=== PATIENT | female | born 1990 | race Two or more races ===

== ENCOUNTER 2021-03-25 02:11 | Inpatient (IN) | payer MEDICAID, OTHER ==
[2021-03-25] MEDS ORDERED: Methylergonovine 0.2 MG/ML VIAL IM PRN ×2 (02:53→03:39)
[2021-03-25] MEDS ORDERED: Carboprost 250 MCG/ML AMP IM PRN (02:53)
[2021-03-25] MEDS ORDERED: Promethazine HCl 25 MG/ML VIAL IM PRN (02:53)
[2021-03-25] MEDS ORDERED: hydrALAZINE 20 MG/ML VIAL SLOW IVP PRN ×2 (02:53→03:39)
[2021-03-25] MEDS ORDERED: Lidocaine 1% (PF) 30 ML VIAL SC PRN (02:53)
[2021-03-25] MEDS ORDERED: Acetaminophen 500 MG TAB PO PRN (02:53)
[2021-03-25] MEDS ORDERED: Ondansetron PF 4 MG/2 ML Vial IVP PRN ×2 (02:53→03:39)
[2021-03-25] MEDS ORDERED: Ibuprofen 800 MG TAB PO PRN (02:53)
[2021-03-25] MEDS ORDERED: Misoprostol 200 MCG TAB PR PRN (02:53)
[2021-03-25] MEDS ORDERED: NS w/ Oxytocin 30 units 500 ML IV SCH ×2 (03:00→04:00)
[2021-03-25] MEDS ORDERED: NS w/ Oxytocin 30 units 500 ML ONE (03:00)
[2021-03-25] MEDS ORDERED: Lactated Ringer's 1,000 ML IV SCH (03:00)
[2021-03-25 03:23] VITALS: BMI 35.2
[2021-03-25 03:26] LABS: Hemoglobin 11.6 g/dL (12.0-15.5); Mean Corpuscular Hemoglobin 28.6 pg (27.0-33.0); Mean Corpuscular Volume 89.2 fl (81.6-98.3); Mean Platelet Volume 10.9 fl (7.4-10.4); Platelet Count 232 10x3/uL (150-450); Red Blood Cell (RBC) Count 4.06 10x6/uL (3.90-5.03); White Blood Cell (WBC) Count 9.9 10x3/uL (3.5-10.5)
[2021-03-25] MEDS ORDERED: Lanolin Ointment 7 GM TUBE TOP PRN (03:39)
[2021-03-25] MEDS ORDERED: Preparation H Ointment 28 GM TUBE PR PRN (03:39)
[2021-03-25] MEDS ORDERED: Bisacodyl 10 MG SUPP PR PRN (03:39)
[2021-03-25] MEDS ORDERED: diphenhydrAMINE 25 MG CAP PO PRN (03:39)
[2021-03-25] MEDS ORDERED: Boostrix 0.5 ML (Tdap) VIAL IM ONE (03:39)
[2021-03-25] MEDS ORDERED: Misoprostol 200 MCG TAB VAG PRN (03:39)
[2021-03-25] MEDS ORDERED: Benzocaine-Menthol 82.5 ML CAN TOP PRN (03:39)
[2021-03-25] MEDS ORDERED: Milk Of Magnesia 30 ML UDCUP PO PRN (03:39)
[2021-03-25] MEDS ORDERED: Ibuprofen 800 MG TAB ONE (03:52)
[2021-03-25] MEDS: Ibuprofen 800 MG TAB PO SCH ×3 (03:53→21:10)
[2021-03-25 04:00] LABS: Syphilis Antibody Nonreactive (Nonreactive)
[2021-03-25] MEDS ORDERED: HYDROcodone/Acetaminophen 5/325 mg Tablet PO SCH (04:00)
[2021-03-25 04:14] LABS: HBSAg Index 0.18 S/CO (0-0.99); Hep B Surf Ag NonReactive S/CO (NonReactive)
[2021-03-25 04:29] LABS: SARS-CoV-2 NAA Rapid Test DETECTED (NotDetected)
[2021-03-25 05:25] LABS: Hemoglobin 10.3 g/dL (12.0-15.5); Mean Corpuscular HGB CONC 32.8 g/dL (32.0-36.0); Mean Corpuscular Hemoglobin 29.1 pg (27.0-33.0); Mean Corpuscular Volume 88.7 fl (81.6-98.3); Platelet Count 213 10x3/uL (150-450); RBC Distribution Width 13.9 % (11.5-14.5); Red Blood Cell (RBC) Count 3.54 10x6/uL (3.90-5.03); White Blood Cell (WBC) Count 13.3 10x3/uL (3.5-10.5)
[2021-03-25] MEDS ORDERED: Oxytocin 10 UNITS/ML VIAL ONE (05:35)
[2021-03-25] MEDS ORDERED: Witch Hazel-Glycerin 1 EACH JAR TOP PRN (08:24)
[2021-03-25] MEDS ORDERED: Witch Hazel-Glycerin 1 EACH JAR ONE (08:51)
[2021-03-25] MEDS: Prenatal Vitamin 1 TAB PO SCH (08:55)
[2021-03-25] MEDS: Docusate 100 MG CAP PO SCH ×2 (08:55→21:10)
[2021-03-25] MEDS: Ferrous Sulfate 325 MG TAB PO SCH (14:59)
[2021-03-25 17:57] LABS: SARS-CoV-2 NAA Rapid Test DETECTED (NotDetected)
[2021-03-26] MEDS: Ibuprofen 800 MG TAB PO SCH ×3 (05:51→21:51)
[2021-03-26] MEDS: Ferrous Sulfate 325 MG TAB PO SCH ×2 (08:13→15:36)
[2021-03-26] MEDS: Docusate 100 MG CAP PO SCH ×2 (08:19→21:52)
[2021-03-26] MEDS: Prenatal Vitamin 1 TAB PO SCH (08:19)
[2021-03-27] MEDS: Ibuprofen 800 MG TAB PO SCH (06:05)
[2021-03-27] MEDS: Ferrous Sulfate 325 MG TAB PO SCH (07:31)
[2021-03-27] MEDS: Docusate 100 MG CAP PO SCH (08:26)
[2021-03-27] MEDS: Prenatal Vitamin 1 TAB PO SCH (08:26)
[2021-03-27 08:48] VITALS: BP 108/53; TEMP 98.2
== END 2021-03-27 10:55 | disposition home or self-care (01) | DRG 805 ==
LOC: CSHLD/OP 02:11 → CSHLD 02:45 → CSHPP 13:25
PROVIDERS: ADMIT Family Medicine; ATTEND Family Medicine
PROC: 10E0XZZ Delivery of Products of Conception, External Approach (ICD-10-PCS; principal; 2021-03-25)
PROC: 10907ZC Drainage of Amniotic Fluid, Therapeutic from Products of Conception, Via Natural or Artificial Opening (ICD-10-PCS; 2021-03-25)
PROC: 8E0ZXY6 Isolation (ICD-10-PCS; 2021-03-25)
DX: O99.824 Streptococcus B carrier state complicating childbirth (principal); U07.1 COVID-19; Z37.0 Single live birth; O98.52 Other viral diseases complicating childbirth; Z3A.39 39 weeks gestation of pregnancy; O72.1 Other immediate postpartum hemorrhage
CPT/HCPCS: 36415; 85027; 86780; 86850; 86900; 86901; 87340; 99285; J2590; U0002